=== PATIENT | male | born 1970 ===

== ENCOUNTER 2023-05-27 03:48 | Outpatient (CLI) | payer OTHER, SELFPAY ==
[2023-05-27] MEDS: Levalbuterol HFA 15 GM INH 4 PUFF IH (11:07)
[2023-05-27] MEDS: Inhaler, Assist Device 1 EACH MC (11:08)
--- NOTE | 2023-05-30 08:11 | W.6MWT ---
Date of service: 05/27/23 Time of Service: 10:04 6 Minute Walk Test Note: 6 Minute Walk Test Distance walked: 1200 feet Desaturations: No significant desaturations Heart rate changes: No significant heart rate changes Recommendation: Normal walk distance, no supplemental O2 needed. Cecile Rose MD Pulmonary & Critical Care Medicine
--- NOTE | 2023-05-30 08:13 | W.PFT ---
Date of service: 05/27/23 Time of Service: 10:17 Pulmonary Function Test Result Indications: Disability Interpretation Spirometry: There is moderate airflow limitation. No significant bronchodilator response. Impression Moderate airflow obstruction. Clinical Correlation therefore is recommended.
== END 2023-05-27 03:49 | disposition home or self-care (01) ==
LOC: RT 03:49
PROVIDERS: Visit Provider Pediatrics Pediatric Rheumatology
DX: Z02.71 Encounter for disability determination (principal)
CPT/HCPCS: 94060; 94618